=== PATIENT | female | born 1980 | race African-American/Black ===

== ENCOUNTER 2016-06-17 09:39 | Emergency (ER) | payer OTHER ==
[2016-06-17 09:32] LABS: INFLUENZA A NEG (NEG); INFLUENZA B NEG (NEG)
[~2016-06-17 09:39] MED LIST: IBUPROFEN800 MG PO; NO MEDICATIONS; VOLTAREN75 MG PO
== END 2016-06-17 09:40 | disposition home or self-care (01) ==
LOC: CFTX 09:39
PROVIDERS: Physician Assistant
DX: J06.9 Acute upper respiratory infection, unspecified (principal); Z88.0 Allergy status to penicillin; Z88.2 Allergy status to sulfonamides
CPT/HCPCS: 87651; 87804; 99282